=== PATIENT | female | born 1990 | race Two or more races ===

== ENCOUNTER 2019-01-24 21:40 | Emergency (ER) | payer SELFPAY ==
[~2019-01-24] VITALS: Ht 177.8 cm; Wt 63.5 kg
[2019-01-24 21:44] VITALS: BP 138/97
[2019-01-25] MEDS ORDERED: methylPREDNISolone SOD SUCC 125 MG/2 ML VL IM ONE (00:15)
[2019-01-25] MEDS ORDERED: ALBUTEROL SULF 2.5 MG/0.5ML(0.5%) NEB SOLN NEB ONE (00:15)
[2019-01-25] MEDS ORDERED: IPRATROPIUM BROM 0.5 MG/2.5ML INH SOL NEB ONE (00:15)
== END 2019-01-25 01:48 | disposition home or self-care (01) ==
LOC: EDBD 21:40 → ER 21:51
DX: J45.901 Unspecified asthma with (acute) exacerbation (principal); G43.909 Migraine, unspecified, not intractable, without status migrainosus
CPT/HCPCS: 71046; 94640; 96372; 99283; J2930; J7611; J7644